=== PATIENT | male | born 1990 | race Caucasian/White ===

== ENCOUNTER 2017-01-27 13:07 | Day surgery (SDC) | payer BC, OTHER ==
--- NOTE | ~2017-01-27 | EGD ---
EGD REPORT [facility] [address] [id number] NAME: MIKE OROZCO : [birth year] STATUS : REG [facility]#: [id number] AGE: 26 ADM/REG DATE : 01/27/17 MR#: [id number] REPORT SERV DATE: 01/27/17 DICTATED BY: SAE BETANCOURT DATE: 01/27/17 REPORT STATUS : Draft [facility]ANS[facility] BY: [facility] DATE: 01/27/17 Endoscopy Center Patient Name: Mike Orozco Date of : 1990 Attending MD: JANICE BETANCOURT MD Procedure Date No Time: 01/27/2017 Procedure: Upper GI endoscopy Indications: Follow-up of Cates's esophagus Referring MD: RHONDA TOTH MD Medicines: See the Anesthesia note for documentation of the administered medications Complications: No immediate complications. Estimated blood loss: Minimal. Procedure: Pre-Anesthesia Assessment: - Prior to the procedure, a History and Physical was performed, and patient medications and allergies were reviewed. The patient's tolerance of previous anesthesia was also reviewed. The risks and benefits of the procedure and the sedation options and risks were discussed with the patient. All questions were answered, and informed consent was obtained. Prior Anticoagulants: The patient has taken no previous anticoagulant or antiplatelet agents. ASA Grade Assessment: III - A patient with severe systemic disease. After reviewing the risks and benefits, the patient was deemed in satisfactory condition to undergo the procedure. After obtaining informed consent, the endoscope was passed under direct vision. Throughout the procedure, the patient's blood pressure, pulse, and oxygen saturations were monitored continuously. The GIF [id number] was introduced through the mouth, and advanced to the second part of duodenum. The upper GI endoscopy was accomplished without difficulty. The patient tolerated the procedure well. Findings: The examined duodenum was normal. The entire examined stomach was normal. The cardia and gastric fundus were normal on retroflexion. Diffuse mild erythema was found at the gastroesophageal junction. Biopsies were taken with a cold forceps for histology. Impression: - Normal examined duodenum. - Normal stomach. - Erythema at the gastroesophageal junction. Biopsied. EGD REPORT [address] [address] NAME: MIKE OROZCO : [birth year] STATUS : REG [facility] [place] PAT#: [id number] AGE: 26 ADM/REG DATE : 01/27/17 MR#: [id number] REPORT SERV DATE: 01/27/17 DICTATED BY: SAE BETANCOURT DATE: 01/27/17 REPORT STATUS : Draft TRANSCRIBED BY: [employer] DATE: 01/27/17 Recommendation: - Patient has a contact number available for emergencies. The signs and symptoms of potential delayed complications were discussed with the patient. Return to normal activities tomorrow. Written discharge instructions were provided to the patient. - Regular diet. - Discharge patient to home. - Continue present medications. - Await pathology results. Procedure Code(s): --- Professional --- 18456, Esophagogastroduodenoscopy, flexible, transoral; with biopsy, single or multiple Diagnosis Code(s): --- Professional --- K22.70, Cates's esophagus without dysplasia K22.9, Disease of esophagus, unspecified CPT copyright 2013 [employer] [place] [employer]. All rights reserved. The codes documented in this report are preliminary and upon tool design drafter review may be revised to meet current compliance requirements. JANICE BETANCOURT MD 01/27/2017 3:39 PM This report has been signed electronically. Number of Addenda: 0 Note Initiated On: 01/27/2017 3:23 PM [address] [id number]
[~2017-01-27 13:07] MED LIST: ACET500CAP PO; BENEFIBER PO; CYANO1000T PO; FIBERCON PO; MIRALAXPKT PO; MONODOX100 MG PO; PCET PO; PRILOSEC40 MG PO; PROBIOTIC PO; PROTONIX PO; SUPER B COMP PO; ZOFRAN4 PO
== END 2017-01-27 23:59 | disposition home or self-care (01) ==
LOC: DMU 13:07
PROVIDERS: Internal Medicine Gastroenterology
PROC: 0DB48ZX Excision of Esophagogastric Junction, Via Natural or Artificial Opening Endoscopic, Diagnostic (ICD-10-PCS; principal; 2017-01-27 14:30)
DX: K22.70 Barrett's esophagus without dysplasia (principal); F84.0 Autistic disorder
CPT/HCPCS: 88305